=== PATIENT | female | born 1985 | race Caucasian/White ===

== ENCOUNTER 2017-02-28 12:50 | Emergency (ER) | payer SELFPAY ==
[~2017-02-28 12:50] MED LIST: ACULAR OP; AKTOB5 ML OP; ALLEGRA-D 12 H1 EACH PO; AMOXICILLIN500 M PO; AMOXICILLIN500 M2 PO; AUGMENTIN 875-1 EAC2 PO; COLACE100 M1 PO; COLACE50 MG PO; DICLOFENAC POTA50 M1 PO; EFFEXOR XR75 M1 PO; FLONASE ALLERG9.9 ML NS; GABAPENTIN; H PO; IRON1 TA1 PO; LATUDA60 M1 PO; LATUDA80 M1 PO; MOTRIN800 MG PO; NO HOME MEDS; NORCO 10-325 T1 EACH PO; NORCO 5-325 TA1 EACH PO; NORCO 5/325 TAB1 TAB PO; OXYCODONE/APAP PO; PENICILLIN V P500 M1 PO; PERCOCET 5/3251 TAB PO; PREDNISONE20 M1 PO; PRENATAL VITAM1 EA12 PO; PRENATAL1 EACH PO; PRENATAL1 TAB; PROAIR HFA8.5 GM IH; PROZAC10 M; TOBRADEX EYE DRO5 ML OP; TUSSIONEX PENN480 ML PO; VENTOLIN HFA18 G2 PO; VISTARIL25 MG; VITAFOL-OB+DHA1 EACH PO; ZITHROMAX250 M1 PO; ZOFRAN ODT4 MG PO; ZOFRAN4 M2 PO; ZOFRAN4 MG; ZOFRAN4 MG PO; [UNRECOGNIZED DRUG - OTHER] PO
[2017-02-28] MEDS ORDERED: DEPAKOTE ER500 M1 PO (13:34)
[2017-02-28 13:50] LABS: BASO % 0.7 % (0-2); EOS % 4.5 % (0-7); EOSINOPHIL ABSOLUTE COUNT 0.2 tho/cmm (0.0-0.7); HCT-HEMATOCRIT 37.6 % (34.0-49.0); HGB-HEMOGLOBIN 13.2 gm/dl (12.0-15.5); IMMATURE GRANULOCYTES ABSOLUTE 0.01 tho/cmm (0-0.03); IMMATURE GRANULOCYTES PERCENT 0.2 % (0-0.3); LYMPH % 26.6 % (20-45); LYMPH ABSOLUTE COUNT 1.4 tho/cmm (0.8-4.5); MCH (MEAN CORPUSCULAR HGB) 31.7 pg (28.0-32.0); MCHC MEAN CORPUSCULAR HGB CONC 35.1 % (32.0-36.0); MCV (MEAN CELL VOLUME) 90.4 fl (82.0-96.0); MEAN PLATELET VOLUME 9.4 cmc (9.4-12.4); MONO % 7.9 % (0-12); MONOCYTE ABSOLUTE COUNT 0.4 tho/cmm (0.0-1.2); NEUTROPHIL ABSOLUTE COUNT 3.2 tho/cmm (1.6-8.0); NEUTROPHIL-AUTOMATED 3.2 tho/cmm (1.6-8.0); NEUTROPHILS % 60.1 % (40-80); PLATELET COUNT 211 tho/cmm (150-450); RED BLOOD COUNT 4.16 mil/cmm (4.00-5.20); RED CELL DISTRIBUTION WIDTH 12.9 % (12.4-16.4); WHITE BLOOD COUNT 5.3 tho/cmm (4.0-10.0)
[2017-02-28 14:05] LABS: PREGNANCY-SERUM NEGATIVE (NEGATIVE)
[2017-02-28 14:06] LABS: ALBUMIN 3.3 g/dl (3.5-5.0); ALKALINE PHOSPHATASE 58 U/L (33-138); ALT/SGPT 26 U/L (12-78); BILIRUBIN,TOTAL 0.3 mg/dl (0-1.5); BLOOD UREA NITROGEN 23 mg/dl (6-24); CALCIUM 8.3 mg/dl (8.5-10.5); CARBON DIOXIDE-VENOUS 23 mmol/L (22-32); CHLORIDE 109 mmol/l (96-110); CREATININE 0.67 mg/dl (0.50-1.10); GLUCOSE 81 mg/dL (70-110); LIPASE 211 U/L (73-393); SODIUM 141 mmol/L (135-145); eGFR VALUE FOR BLACK >90 mL/Min
[2017-02-28 14:08] LABS: ANION GAP 13 mmol/L (0-20); AST/SGOT 26 U/L (10-40); POTASSIUM 4.4 mmol/L (3.7-5.1)
[2017-02-28 15:21] LABS: URINE BILIRUBIN NEGATIVE (NEG); URINE BLOOD NEGATIVE (NEG); URINE GLUCOSE (UA) NEGATIVE (NEG); URINE KETONE NEGATIVE (NEG); URINE LEUKOCYTE ESTERASE NEGATIVE (NEG); URINE NITRITE NEGATIVE (NEG); URINE PROTEIN NEGATIVE (NEG); URINE SPECIFIC GRAVITY 1.005 (1.003-1.030)
[2017-02-28 15:22] LABS: URINE APPEARANCE HAZY; URINE COLOR YELLOW
[2017-02-28] MEDS ORDERED: NORCO 5-325 TA1 EACH PO (15:49)
[2017-02-28] MEDS ORDERED: ZOFRAN ODT4 MG PO (16:20)
[2017-04-20] MEDS ORDERED: RISPERDAL1 M2 (04:41)
[2017-04-20] MEDS ORDERED: PERCOCET 5-3251 EACH PO (07:51)
== END 2017-02-28 16:04 ==
LOC: EDMED 12:50
PROVIDERS: Emergency Medicine
DX: N83.201 Unspecified ovarian cyst, right side (principal); R19.7 Diarrhea, unspecified; Z90.89 Acquired absence of other organs
CPT/HCPCS: J1170; J2405